=== PATIENT | female | born 1990 | race Two or more races ===

== ENCOUNTER 2022-09-01 21:09 | Emergency (ER) | payer OTHER ==
[~2022-09-01] VITALS: Ht 160 cm; Wt 56.7 kg
[2022-09-01] MEDS ORDERED: ANALPRAM HC 2.530 GM RECTAL (22:11)
== END 2022-09-01 22:14 | disposition home or self-care (01) ==
LOC: ER 21:09
DX: K64.8 Other hemorrhoids (principal)

== ENCOUNTER 2022-10-20 11:40 | Emergency (ER) | payer OTHER ==
[~2022-10-20] VITALS: Ht 160 cm; Wt 59.0 kg
[~2022-10-20 11:40] MED LIST: ANALPRAM HC 2.530 GM RECTAL
== END 2022-10-20 13:44 | disposition home or self-care (01) ==
LOC: ER 11:40
DX: M62.838 Other muscle spasm (principal)